=== PATIENT | female | born 1965 | race Caucasian/White ===

== ENCOUNTER 2022-11-03 10:30 | Emergency (ER) | payer OTHER ==
[~2022-11-03] VITALS: Ht 162.6 cm; Wt 63.5 kg
[2022-11-03 10:30] VITALS: BP_SYST 154; PULSE 80; RESP 18; TEMP 98; O2SAT 99
--- NOTE | 2022-11-03 10:30 | NUR ---
Placed in room 04 . Placed on bus monitor, blood pressure machine and pulse oximeter. To gown for exam. Side rails up. Report given to CARRIE WELLS.
--- NOTE | 2022-11-03 10:35 | NUR ---
ER DR. DUNNE AT THE BEDSIDE EXAMINING PT
--- NOTE | 2022-11-03 10:52 | NUR ---
TWO STROKE ALERTS IN ED AT THE SAME TIME. STROKE ALERT CALLED AT [id number].
--- NOTE | 2022-11-03 10:59 | NUR ---
LAB AT THE BEDSIDE FOR BLOOD DRAW
--- NOTE | 2022-11-03 11:03 | NUR ---
PER DR DUNNE, OTHER CODE STROKE HAS PRIORITY OVER CT HEAD AND TELENEURO.
[2022-11-03] MEDS ORDERED: IOHEXOL 350 mgI/mL, 150 ML INFUS..BTL IV ONE (11:09)
--- NOTE | 2022-11-03 11:10 | NUR ---
Patient transported to radiology via GURNEY, accompanied by RN AND RAD STAFF.
--- NOTE | 2022-11-03 11:15 | NUR ---
Patient got accucheck in the ED. This RN started IV in CT suite at this time. Patient given 20 gauge in left forearm. CT and CTA completed at this time.
--- NOTE | 2022-11-03 11:20 | NUR ---
Patient returned to ED at this time. Blood was drawn earlier while awaiting CT scan as patient was second of simutaneous CODE STROKES.
[2022-11-03 11:39] LABS: BASOPHILS # (AUTO) 0.1 K/uL (0.0-0.2); BASOPHILS % (AUTO) 0.9 % (0.0-2.0); EOSINOPHILS # (AUTO) 0.1 K/uL (0.0-0.4); EOSINOPHILS % (AUTO) 1.2 % (0.0-4.0); HEMATOCRIT 42.8 % (36-48); HEMOGLOBIN 14.4 g/dL (12.0-16.0); LYMPHOCYTES # (AUTO) 1.4 K/uL (1.0-5.5); LYMPHOCYTES % (AUTO) 23.9 % (20.5-51.5); MEAN CORPUSCULAR HEMOGLOBIN 32 pg (27-31); MEAN CORPUSCULAR HGB CONC 34 % (32-36); MEAN CORPUSCULAR VOLUME 94 fL (79.0-98.0); MONOCYTES # (AUTO) 0.3 K/uL (0.0-1.0); MONOCYTES % (AUTO) 5.5 % (1.7-9.3); NEUTROPHILS % (AUTO) 68.5 % (40.0-70.0); PLATELET COUNT (AUTO) 272 K/uL (130-430); RED BLOOD CELL COUNT(AUTO) 4.56 MIL/uL (4.2-6.2); RED CELL DISTRIBUTION WIDTH 13.1 % (9.0-15.0); WHITE BLOOD COUNT (AUTO) 5.8 K/uL (4.8-10.8)
--- NOTE | 2022-11-03 11:40 | NUR ---
Patient had evaluation by neurologist and he indicated to patient that the findings of her CT indicated a possible mass (2cm) and that a stroke was highly unlikely. Patient stated she understood. ED MD requesting higher level of care.
[2022-11-03 11:51] LABS: ANION GAP 6 (5-15); CHLORIDE 103 mmol/L (98-107); CREATININE 0.83 mg/dL (0.55-1.30); GFR AFRICAN AMERICAN 91 mL/min (>90); GLUCOSE 111 mg/dL (74-106); UREA NITROGEN, BLOOD 16 mg/dL (8-21)
[2022-11-03 11:58] LABS: ALANINE AMINOTRANSFERASE 21 U/L (12-78); ASPARTATE AMINOTRANSFERASE 19 U/L (10-37); TOTAL BILIRUBIN 0.5 mg/dL (0.0-1.0)
[2022-11-03] MEDS ORDERED: levETIRAcetam 500 MG TABLET PO ONE (17:30)
[2022-11-03] MEDS ORDERED: DEXAMETHASONE SOD PHOSPHATE 4 MG/ML VIAL PO ONE (17:30)
[2022-11-03] MEDS ORDERED: LEVE1000 PO (17:42)
[2022-11-03] MEDS ORDERED: DEC1 PO (17:43)
--- NOTE | 2022-11-03 17:53 | NUR ---
Cancelled PV transfer. Confirmed with Elian.
--- NOTE | 2022-11-03 18:00 | NUR ---
Received TX denial from Kleber at [facility]. Patient recommeded by Carmelo Carney for patient to call his office in the AM and to make arrangements for Zoom call. Meds RX by ED MD. Plan is for patient to connect with neurosurgeon above and have care from him at [facility] but according to ED MD and neurosurgeon, patient doesn't need to be admitted to a hospital. This information came to this RN from Kleber at [facility] transfer center as well as Dr. Rose advising me at this time.
[2022-11-03 18:40] VITALS: BP_SYST 147; PULSE 87; RESP 16; TEMP 100.2; O2SAT 98
--- NOTE | 2022-11-03 18:49 | NUR ---
Patient given written and verbal discharge instructions and verbalizes understanding. ER MD discussed with patient the results and treatment provided. Patient in stable condition. ID arm band removed. IV catheter removed intact and dressing applied, no active bleeding. Rx of Keppra and Decadron given. RN called [facility] to assure prescription of same was ready and it is at this time. Patient educated on pain management and to follow up with PMD. Pain Scale 0/10. Opportunity for questions provided and answered. Medication side effect fact sheet provided.
== END 2022-11-03 18:40 | disposition home or self-care (01) ==
LOC: SED 10:30
DX: C71.9 Malignant neoplasm of brain, unspecified (principal); R53.1 Weakness; R51.9 Headache, unspecified; I10 Essential (primary) hypertension; Z79.899 Other long term (current) drug therapy
CPT/HCPCS: 99291; 70496; 71045; 80053; 83880; 85025; 84484; 36415; 70498; 99292; 70450; 76376; J1100; Q9967